=== PATIENT | female | born 1960 | race Caucasian/White ===

== ENCOUNTER 2016-08-14 16:38 | Emergency (ER) | payer OTHER ==
[~2016-08-14] VITALS: Ht 172.7 cm; Wt 106.8 kg
[~2016-08-14 16:38] MED LIST: ALEV220T14 PO; AMLO5TAB22 PO; BACL20 PO; DOXY100T PO; GLUCTAB PO; LOSA100T PO; NEUR400C PO; NORC10TA2 PO; OMPR20CCR PO; ROPI.25 PO; SIMV5TAB3 PO; ST J81CH PO
[2016-08-14 16:42] VITALS: BP 140/97; PULSE 98; RESP 16; TEMP 98.8; O2SAT 95
[2016-08-14] MEDS ORDERED: GABA400C5 PO (17:38)
[2016-08-14] MEDS ORDERED: METF1000 PO (17:38)
[2016-08-14] MEDS ORDERED: SIMV40TA PO (17:38)
[2016-08-14] MEDS ORDERED: ASPI81CH7 CHEW (17:38)
[2016-08-14] MEDS ORDERED: AMLO10TA2 PO (17:38)
[2016-08-14] MEDS ORDERED: BACT800T5 PO (17:38)
[2016-08-14] MEDS ORDERED: NAPR500T PO (17:38)
[2016-08-14] MEDS ORDERED: PRIL20CA9 PO (17:38)
[2016-08-14] MEDS ORDERED: LOSA100T PO (17:38)
[2016-08-14] MEDS ORDERED: CYCL1TAB29 PO (17:38)
[2016-08-14] MEDS ORDERED: HYDR-3366 PO (17:38)
[2016-08-14] MEDS ORDERED: PROP20TA3 PO (17:38)
[2016-08-14] MEDS ORDERED: CLIN1CAP6 PO (17:58)
--- NOTE | 2016-08-14 17:59 | PD ---
HPI Chief Complaint: Skin Problem Time Seen by Provider: 17:37 Travel History International Travel<30 days: No Contact w/Intl Traveler<30days: No Traveled to known affect area: No History of Present Illness HPI So 55-year-old presents emergent department with pain and tenderness in her right breast. States she's had an abscess cerebrospinal on Bactrim. Is not improving. She did have some resolving erythema but there separator tender mass. She notes and as sharp on the wound this morning. No fevers or chills. History of diabetes hypertension neuropathy and chronic musculoskeletal pain. She's had multiple skin infections over the past couple years including a previous breast abscess on that same breast. History Past Medical History Narrative Medical Diabetes Hypertension Neuropathy Chronic pain Tetanus Vaccination: < 5 Years Influenza Vaccination: Yes LMP: LAST WEEK Menopausal: Yes : 3 Dilation and Curettage (D&C): Yes Social History Alcohol Use: No Tobacco Use: Yes (2 PACKS DAILY) Allergies-Medications (Allergen,Severity, Reaction): Coded Allergies: No Known Allergies (Verified , 08/14/16) Reported Meds & Prescriptions Reported Meds & Active Scripts Active Clindamycin (Clindamycin HCl) 300 Mg Cap 300 Mg PO Q6H 10 Days Reported Propranolol (Propranolol HCl) 20 Mg Tab 20 Mg PO Q12HR Bactrim DS (Sulfamethoxazole-Trimethoprim) 800-160 Mg Tab 1 Tab PO BID Simvastatin 40 Mg Tab 40 Mg PO HS Prilosec (Omeprazole) 20 Mg Cap 20 Mg PO BID Naproxen 500 Mg Tab 500 Mg PO BID Metformin (Metformin HCl) 1,000 Mg Tab 1,000 Mg PO BIDPC With meals Losartan (Losartan Potassium) 100 Mg Tab 100 Mg PO DAILY Cando (Hydrocodone-Acetaminophen) 10-325 Mg Tab 1 Tab PO Q6H PRN Gabapentin 400 Mg Cap 400 Cap PO TID Flexeril (Cyclobenzaprine HCl) 10 Mg Tab 10 Mg PO TID Aspirin Children's (Aspirin) 81 Mg Chew 81 Mg CHEW DAILY Amlodipine (Amlodipine Besylate) 10 Mg Tab 10 Mg PO DAILY Review of Systems Except as stated in HPI: all other systems reviewed are Neg Physical Exam Narrative GENERAL: 55-year-old woman, no acute distress. SKIN: Warm and dry. CARDIOVASCULAR: Regular rate and rhythm. No murmur appreciated. RESPIRATORY: No accessory muscle use. Clear to auscultation. Breath sounds equal bilaterally. GASTROINTESTINAL: Abdomen soft, non-tender, nondistended. Hepatic and splenic margins not palpable. BREASTS: Tenderness right breast. There is a area of erythema redness about 2 x 2 centimeters in the inferior aspect of the breast, at about the 7 o'clock position. There is an as sharp about once a year in diameter, with necrotic tissue. This was removed and there was purulent drainage easily expressed from the area. MUSCULOSKELETAL: No obvious deformities. Data Data Last Documented VS Vital Signs Date Time Temp Pulse Resp B/P Pulse Ox O2 Delivery O2 Flow Rate FiO2 08/14/16 16:42 98.8 98 16 140/97 95 Orders Wound Culture And Gram Stain (08/14/16 17:56) MDM Medical Decision Making Medical Screen Exam Complete: Yes Emergency Medical Condition: Yes Differential Diagnosis Abscess, cellulitis, malignancy, other Narrative Course Medical decision making 55-year-old who appears to be a breast abscess. She is a history of lots of soft tissue abscesses. Malignancy always a consideration. She is not improving on Bactrim. The erythema and cellulitis to improve of the abscess remains. Has a necrotic focus. This was sharply debrided and purulent drainage was easily expressed. Encouraged warm compresses, changed to clindamycin, wound culture pending, outpatient follow-up. Procedures Procedure Narrative Incision and drainage: Area was prepped with Betadine. The necrotic tissue was sharply debrided from the central area of abscess. Purulent drainage was expressed. Wound culture was taken. Patient tolerated well. Diagnosis Primary Impression: Breast abscess Patient Instructions: General Instructions Additional Instructions: Take clindamycin as prescribed. Use warm compresses 4-5 times daily. Follow up with her primary doctor in 1-2 days. Med/Other Pt SpecificInfo: Prescription(s) given Scripts Clindamycin 300 Mg [id number] Mg PO Q6H 10 Days Prov:Scottie Kim MD 08/14/16 Disposition: 01 DISCHARGE HOME Condition: Stable Scottie Kim MD Aug 14, 2016 17:58
[2016-09-23] MEDS ORDERED: INSU1INJ14 (11:27)
[2016-09-23] MEDS ORDERED: GLIP5TAB8 (11:27)
[2016-09-23] MEDS ORDERED: PILO5TAB3 (11:27)
== END 2016-08-14 18:12 | disposition home or self-care (01) ==
LOC: PHED 16:38
DX: N61.1 Abscess of the breast and nipple (principal); E11.9 Type 2 diabetes mellitus without complications; I10 Essential (primary) hypertension; G62.9 Polyneuropathy, unspecified; G89.29 Other chronic pain; F17.200 Nicotine dependence, unspecified, uncomplicated; Z79.84 Long term (current) use of oral hypoglycemic drugs
CPT/HCPCS: 10060; 87070; 87205